=== PATIENT | female | born 1990 | race Caucasian/White ===

== ENCOUNTER 2018-01-15 09:21 | Emergency (ER) | payer MEDICAID ==
[~2018-01-15] VITALS: Ht 157.5 cm; Wt 90.0 kg
[2018-01-15 11:16] VITALS: BP 106/73
[2018-01-15] MEDS ORDERED: ibuprofen tablet 400 MG TABLET PO ONE (11:35)
[2018-01-15] MEDS ORDERED: AMOX500C2 PO (11:36)
[2018-01-15] MEDS ORDERED: BENZ-16 PO (11:38)
== END 2018-01-15 11:57 | disposition home or self-care (01) ==
LOC: ER 09:22
DX: J20.9 Acute bronchitis, unspecified (principal); Z88.7 Allergy status to serum and vaccine
CPT/HCPCS: 99283

== ENCOUNTER 2018-09-11 14:50 | Emergency (ER) | payer MEDICAID ==
[~2018-09-11] VITALS: Ht 157.5 cm; Wt 72.7 kg
[~2018-09-11 14:50] MED LIST: IBUP-1984 PO; PENI250T2 PO
[2018-09-11 14:51] VITALS: BP 142/96
[2018-09-11] MEDS ORDERED: acetaminophen 325mg tablet PO ONE (16:20)
[2018-09-11] MEDS ORDERED: BUPIVAcaine/PF 2.5mg/ml (0.25%) 10ml vial IJ ONE (16:20)
[2018-09-11] MEDS ORDERED: BUPIVAcaine/PF 2.5 mg/ml (0.25%) 30ml vial IJ ONE (16:20)
[2018-09-11] MEDS ORDERED: ACET-2119 PO (16:42)
== END 2018-09-11 16:48 | disposition home or self-care (01) ==
LOC: ER 14:51
DX: K02.9 Dental caries, unspecified (principal); K03.81 Cracked tooth; Z88.7 Allergy status to serum and vaccine; Z79.899 Other long term (current) drug therapy
CPT/HCPCS: 64400; 99284; J3490

== ENCOUNTER 2020-10-08 12:14 | Emergency (ER) | payer MEDICAID ==
[~2020-10-08] VITALS: Ht 157.5 cm; Wt 84.3 kg
[2020-10-08 12:37] VITALS: BP 135/88
[2020-10-08] MEDS ORDERED: PHEN-893 PO (13:39)
== END 2020-10-08 13:51 | disposition home or self-care (01) ==
LOC: ER 12:14
DX: H91.91 Unspecified hearing loss, right ear (principal); H92.02 Otalgia, left ear; L98.8 Other specified disorders of the skin and subcutaneous tissue; Z88.8 Allergy status to other drugs, medicaments and biological substances; Z79.899 Other long term (current) drug therapy
CPT/HCPCS: 99282; 99283

== ENCOUNTER 2020-10-17 11:50 | Emergency (ER) | payer MEDICAID ==
[~2020-10-17] VITALS: Ht 157.5 cm; Wt 86.0 kg
[~2020-10-17 11:50] MED LIST changes: -IBUP-1984 PO; -PENI250T2 PO; +PHEN-893 PO
[2020-10-17 12:02] VITALS: BP 131/98
[2020-10-17] MEDS ORDERED: dexamethasone sod phosphate 10mg/ml inj IM STA (12:16)
[2020-10-17 13:38] LABS: MONOTEST NEGATIVE (Neg)
[2020-10-17] MEDS ORDERED: PRED20TA PO (13:48)
== END 2020-10-17 13:57 | disposition home or self-care (01) ==
LOC: ER 11:51
DX: J03.90 Acute tonsillitis, unspecified (principal); Z88.7 Allergy status to serum and vaccine; Z79.899 Other long term (current) drug therapy
CPT/HCPCS: 36415; 86308; 96372; 99283; J1100

== ENCOUNTER → 2021-03-11 | Emergency (ER) | payer MEDICAID ==
[~2021-03-11] VITALS: Ht 157.5 cm; Wt 85.0 kg
[~2021-03-11] MED LIST changes: +ALBU6.7H9 INH; +ONDA4TAB6 PO
[2021-03-11 18:17] VITALS: BP 121/87
== END | disposition home or self-care (01) ==
LOC: ER 17:50
DX: U07.1 COVID-19 (principal)
CPT/HCPCS: 36415; 99283; U0003; U0005

== ENCOUNTER 2021-04-21 14:42 | Emergency (ER) | payer MEDICAID ==
[~2021-04-21] VITALS: Ht 157.5 cm; Wt 81.8 kg
[2021-04-21 14:50] VITALS: BP 135/84
[2021-04-21] MEDS ORDERED: HYDROcodone/acetaminophen 5mg/325mg tablet PO ONE (16:10)
[2021-04-21] MEDS ORDERED: AMOX-422 PO (16:16)
[2021-04-21] MEDS ORDERED: amox tr/potassium clavulanate 875/125mg TAB PO ONE (16:35)
== END 2021-04-21 17:14 | disposition home or self-care (01) ==
LOC: ER 14:43
DX: K04.7 Periapical abscess without sinus (principal); F17.210 Nicotine dependence, cigarettes, uncomplicated; Z88.8 Allergy status to other drugs, medicaments and biological substances
CPT/HCPCS: 41800; 99284